=== PATIENT | male | born 1975 | race Caucasian/White ===

== ENCOUNTER 2018-07-23 19:55 | Emergency (ER) | payer MEDICAID, OTHER ==
[~2018-07-23] VITALS: Ht 172.7 cm; Wt 93.4 kg
[2018-07-23 20:05] VITALS: BP 136/77
--- NOTE | 2018-07-23 20:12 | NUR ---
PATIENT AMBULATED TO ER BED 12.
--- NOTE | 2018-07-23 20:32 | NUR ---
PT PRESENTS TO ED WITH COMPLAINT OF LOWER BACK BACK X 2 WEEKS. PT DENIES INJURY OR TRAUMA. PT REPORTS PAIN GETS WORSE WITH SITTING. PT REPORTS PAIN A BURNING SENSATION. PT PLACED IN GOWN AND BED. PENDING MD PECK.
--- NOTE | 2018-07-23 20:35 | NUR ---
PT ACCU CHECK 392, MD NOTIFIED.
[2018-07-23] MEDS ORDERED: NACL 0.9% 1,000 ML IV SCH (20:38)
[2018-07-23] MEDS ORDERED: MORPHINE SULFATE 4 MG/ML SYR IVP ONE (20:40)
[2018-07-23] MEDS ORDERED: ONDANSETRON 4 MG/2 ML VIAL IVP ONE (20:40)
[2018-07-23 21:09] LABS: BASOPHILS % (AUTO) 0.4 % (0.0-2.0); EOSINOPHILS # (AUTO) 0.1 K/uL (0-0.4); EOSINOPHILS % (AUTO) 1.2 % (0.0-4.0); HEMATOCRIT 40.9 % (36-52); HEMOGLOBIN 13.6 g/dL (12.0-18.0); LYMPHOCYTES # (AUTO) 2.7 K/uL (2.0-11.5); LYMPHOCYTES % (AUTO) 22.7 % (20.5-51.1); MEAN CORPUSCULAR HEMOGLOBIN 29 pg (27-31); MEAN CORPUSCULAR HGB CONC 33 g/dL (33-37); MEAN CORPUSCULAR VOLUME 85.8 fL (80-94); MONOCYTES # (AUTO) 0.9 K/uL (0.8-1.0); MONOCYTES % (AUTO) 7.9 % (1.7-9.3); NEUTROPHILS # (AUTO) 8.1 K/uL (1.8-7.7); NEUTROPHILS % (AUTO) 67.8 % (42.2-75.2); PLATELET COUNT (AUTO) 248 K/uL (140-450); RED BLOOD CELL COUNT(AUTO) 4.77 MIL/uL (4.20-6.10); RED CELL DISTRIBUTION WIDTH 13.6 % (11.6-13.7); WHITE BLOOD COUNT (AUTO) 11.9 K/uL (4.8-10.8)
[2018-07-23 21:13] LABS: ACETONE, SERUM NEGATIVE (NEGATIVE)
[2018-07-23 21:22] LABS: ALBUMIN 3.7 g/dL (3.4-5.0); ANION GAP 13.3 (8-16); ASPARTATE AMINOTRANSFERASE 9 U/L (15-37); CARBON DIOXIDE 26.7 mmol/L (21-32); CHLORIDE 101 mmol/L (98-107); CREATININE 1.1 mg/dL (0.7-1.3); GFR ARICAN-AMERICAN 95 mL/min (>90); SODIUM SERUM 137 mmol/L (136-145); TOTAL BILIRUBIN 0.3 mg/dL (0.0-1.0); UREA NITROGEN, BLOOD 16 mg/dL (7-18)
[2018-07-23 21:26] LABS: GLUCOSE 418 mg/dL (74-106)
[2018-07-23 23:27] VITALS: BP 125/75
--- NOTE | 2018-07-23 23:27 | NUR ---
Patient discharged with v/s stable. Written and verbal after care instructions given and explained. Patient alert, oriented and verbalized understanding of instructions. Ambulatory with steady gait. All questions addressed prior to discharge. ID band removed. Patient advised to follow up with PMD. Rx of TRAMADOL, CLINDAMYCIN, METFORMIN given. Patient educated on indication of medication including possible reaction and side effects. Opportunity to ask questions provided and answered.
== END 2018-07-23 23:27 | disposition home or self-care (01) ==
LOC: MED 19:55
DX: L05.01 Pilonidal cyst with abscess (principal); E11.9 Type 2 diabetes mellitus without complications
CPT/HCPCS: 36415; 72193; 80053; 82009; 82948; 85025; 87040; 96374; 96375; 99285; J2270; J2405

== ENCOUNTER 2018-07-27 16:57 | Emergency (ER) | payer OTHER ==
[~2018-07-27] VITALS: Ht 172.7 cm; Wt 96.2 kg
[2018-07-27 17:15] VITALS: BP 119/84
--- NOTE | 2018-07-27 17:20 | NUR ---
PT AMBULATES TO BED 8
--- NOTE | 2018-07-27 17:25 | NUR ---
PT. bib self with c/o recheck of pilonidal cyst. Patient stating still taking abx. Reports pain remains the same. Patient denies any fevers or chills.6/10 PAIN THAT IS NON RADIATING. DENIES N/V/D. ER MD MADE AWARE. RR EVEN AND UNLABORED. STEADY GAIT. SAFETY PRECAUTIONS IMPLEMENTED. WILL CONTINUE TO MONITOR.
[2018-07-27] MEDS ORDERED: LIDOCAINE 1% 500 MG/50 ML VIAL INJ SCH (18:05)
[2018-07-27 19:13] VITALS: BP 135/75
--- NOTE | 2018-07-27 19:14 | NUR ---
Patient discharged with v/s stable. Written and verbal after care instructions given and explained. Patient alert, oriented and verbalized understanding of instructions. Ambulatory with steady gait. All questions addressed prior to discharge. ID band removed. Patient advised to follow up with PMD. Opportunity to ask questions provided and answered.
== END 2018-07-27 19:13 | disposition home or self-care (01) ==
LOC: MED 16:57
DX: L05.91 Pilonidal cyst without abscess (principal); E11.9 Type 2 diabetes mellitus without complications
CPT/HCPCS: 10080; 99283; J2001

== ENCOUNTER 2018-07-29 14:24 | Emergency (ER) | payer OTHER ==
[~2018-07-29] VITALS: Ht 170.2 cm; Wt 75.7 kg
[2018-07-29 14:27] VITALS: BP 121/73
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
[2018-07-29 15:20] VITALS: BP 118/75
--- NOTE | 2018-07-29 15:21 | NUR ---
Patient discharged with v/s stable. Written and verbal after care instructions given and explained. Patient verbalized understanding. Ambulatory with steady gait. All questions addressed prior to discharge. Advised to follow up with PMD.
== END 2018-07-29 15:21 | disposition home or self-care (01) ==
LOC: MED 14:24
DX: Z48.01 Encounter for change or removal of surgical wound dressing (principal); E11.9 Type 2 diabetes mellitus without complications
CPT/HCPCS: 99281